=== PATIENT | female | born 1980 | race African-American/Black ===

== ENCOUNTER 2018-06-21 06:43 | Emergency (ER) | payer MEDICAID ==
[~2018-06-21] VITALS: Ht 165.1 cm; Wt 90.7 kg
[2018-06-21] MEDS ORDERED: KETOROLAC 15MG/ML VIAL IV ONE (07:30)
[2018-06-21 08:32] LABS: BASOPHILS % 0.4 % (0.0-2.0); EOSINOPHILS % 1.1 % (0.0-5.0); HEMATOCRIT. 41.7 % (36.0-48.0); HEMOGLOBIN. 13.5 g/dL (12.0-16.0); LYMPHOCYTES % 21.9 % (20.0-50.0); MEAN CORPUSCULAR HEMOGLOBIN 28.8 pg (28.0-32.0); MEAN CORPUSCULAR VOLUME 88.9 fL (81.0-99.0); MEAN PLATELET VOLUME 8.1 fl (7.4-10.4); MONOCYTES % 11.9 % (2.0-8.0); NEUTROPHILS % 64.7 % (40.0-76.0); PLATELET 278 x1000/uL (130-400); RED BLOOD CELL COUNT 4.69 mill/uL (4.2-5.4); RED CELL DISTRIBUTION WIDTH 13.5 % (11.6-14.6)
[2018-06-21 08:41] LABS: CHLORIDE 107 mEq/L (98-107)
[2018-06-21 11:17] VITALS: BP 130/72
== END 2018-06-21 11:25 | disposition home or self-care (01) ==
LOC: ER 06:58
DX: J06.9 Acute upper respiratory infection, unspecified (principal); R07.89 Other chest pain; Z98.51 Tubal ligation status; Z98.890 Other specified postprocedural states
CPT/HCPCS: 36415; 71045; 80053; 81025; 84484; 85025; 93005; 96374; 99284; J1885

== ENCOUNTER 2021-12-23 02:36 | Emergency (ER) | payer BC, MEDICAID ==
[~2021-12-23] VITALS: Ht 170.2 cm; Wt 91.0 kg
[2021-12-23 05:50] LABS: BASOPHILS % 0.5 % (0.0-2.0); HEMATOCRIT. 38.6 % (36.0-48.0); HEMOGLOBIN. 12.7 g/dL (12.0-16.0); LYMPHOCYTES % 15.9 % (20.0-50.0); MEAN CORPUSCULAR HEMOGLOBIN 28.4 pg (28.0-32.0); MEAN CORPUSCULAR VOLUME 86.3 fL (81.0-99.0); MEAN PLATELET VOLUME 8.3 fl (7.4-10.4); NEUTROPHILS % 71.6 % (40.0-76.0); PLATELET 276 x1000/uL (130-400); RED BLOOD CELL COUNT 4.48 mill/uL (4.2-5.4); RED CELL DISTRIBUTION WIDTH 13.2 % (11.6-14.6)
[2021-12-23 05:57] LABS: CHLORIDE 106 mEq/L (98-107)
[2021-12-23 06:07] LABS: ETHANOL BLOOD < 10 mg/dL
[2021-12-23 06:26] LABS: HCG SCREEN NEGATIVE
[2021-12-23 08:44] LABS: CLARITY URINE CLEAR (CLEAR); COLOR URINE YELLOW (YELLOW); KETONES URINE NEGATIVE (NEGATIVE); LEUKOCYTE ESTERASE URINE NEGATIVE (NEGATIVE); NITRITE URINE NEGATIVE (NEGATIVE); OCCULT BLOOD URINE NEGATIVE (NEGATIVE); PH URINE 5.5 (4.5-8.0); PROTEIN URINE NEGATIVE (NEGATIVE); SPECIFIC GRAVITY URINE 1.014 (1.005-1.030)
[2021-12-23] MEDS ORDERED: MORPHINE SULFATE 2 MG/ML CPJ (NOT FOR IM USE) IV ONE (08:45)
[2021-12-23] MEDS ORDERED: P20 MT (10:42)
[2021-12-23] MEDS ORDERED: CIPR5DRO EACHEYE (10:42)
[2021-12-23 11:22] VITALS: BP 122/75
== END 2021-12-23 11:37 | disposition home or self-care (01) ==
LOC: ER 02:36
DX: L50.9 Urticaria, unspecified (principal); R07.89 Other chest pain; H10.9 Unspecified conjunctivitis; E78.00 Pure hypercholesterolemia, unspecified; I10 Essential (primary) hypertension; Z88.6 Allergy status to analgesic agent
CPT/HCPCS: 36415; 80053; 80320; 81003; 83605; 83690; 84484; 84703; 85025; 93005; 96374; 99284; J2270; G0480